=== PATIENT | male | born 1945 | race Caucasian/White ===

== ENCOUNTER 2018-03-02 05:22 | Inpatient (IN) ==
--- NOTE | 2018-02-17 11:40 | Anesthesiology Consultation ---
Date of Service February 17, 2018 Assessment & Plan (1) Encounter for pre-operative examination: Plan: - Check BSG AM DOS Chart Review Chart Review: Acceptable Risk for Surgery and Patient seen in Pre Admission Testing Teaching & Discussion Pre-Anesthesia Teaching/Discussion Notes: Instructed NPO after midnight before surgery,except medications with 15 cc of water. Medication instructions provided according to the PAT guidelines. History Surgery Operation Date: 03/02/18 07:15 Proposed Procedures p Total Knee Arthroplasty - Cristino Slade MD Height/Weight Height: 5 ft 3 in Weight: 96.9 kg Allergies Allergy/AdvReac Type Severity Reaction Status Date / Time No Known Allergies Allergy Unknown Verified 02/08/18 08:02 Medications Home Medications Medication Instructions Recorded Confirmed Last Taken allopurinol 300 mg PO QAM 02/08/18 02/08/18 Unknown amlodipine 10 mg PO QAM 02/08/18 02/08/18 Unknown aspirin 81 mg PO QAM 02/08/18 02/08/18 Unknown betamethasone dipropionate 1 applic TOPICAL DAILY PRN 02/08/18 02/08/18 Unknown gabapentin 300 mg PO HS 02/08/18 02/08/18 Unknown lisinopril 20 mg PO BID 02/08/18 02/08/18 Unknown metformin 500 mg PO BID 02/08/18 02/08/18 Unknown metoprolol succinate 50 mg PO QAM 02/08/18 02/08/18 Unknown simvastatin 20 mg PO HS 02/08/18 02/08/18 Unknown triamcinolone acetonide 1 applic TOPICAL BID PRN 02/08/18 02/08/18 Unknown furosemide 40 mg PO DAILY 02/17/18 02/17/18 Unknown potassium chloride 20 meq PO DAILY 02/17/18 02/17/18 Unknown Past Medical History Medical History Anxiety Cancer PROSTATE- S/P RADIATION (2005) Hearing deficit Hyperlipidemia Hypertension Kidney stones Osteoarthritis Peripheral neuropathy Prediabetes ON METFORMIN Urinary frequency Venous stasis dermatitis Past Family History Family History Father Family history of diabetes mellitus Family hx of colon cancer Sister Family hx of colon cancer Past Surgical History Surgical History H/O prostate biopsy History of cataract surgery History of cystoscopy WITH STENT INSERTIONS History of laminectomy LUMBAR LAMINECTOMY/DISCECTOMY History of lithotripsy History of tooth extraction Past Anesthesia History No Hx of Anesthesia Complications and No Family Hx of Anesthesia Complications History of PONV No Motion Sickness Screening History of Motion Sickness: No Social History Smoking Status: Never smoker tobacco type: smokeless tobacco Do You Dip or Chew Tobacco: Yes (1 CAN/DAY= ADVISED NOT TO CHEW AM DOS) Hx Alcohol Use: No Hx Substance Use: No substance use type: does not use Exercise / Class Metabolic Activity III < 4 Walking/Shop/Light housework Review of Systems Patient denies chest pain, shortness of breath, cough, wheezing, palpitations. Physical Exam Vital Signs VITALS BP 143/76 P 74 TEMP 97.6 SP02 96%RA RESP 18 Full neck and c-spine range of motion. Full TMJ range of motion. TMD 3 finger breaths Mallampati Score 2 Dentition: intact Lungs: clear throughout to auscultation Cardiac: regular rate and rhythm, no murmurs noted Spine: normal Carotid arteries: negative bruit Extremities: no edema Testing Electrocardiogram Date: 02/17/18 SR with first degree AVB at 67bpm. Chest X-Ray Date: 02/17/18 Findings: + NAD There is mild cardiomegaly. There are suspected mitral annular calcification. Laboratory Results 02/17/18 12:00 02/17/18 12:00 Blood Type A Positive 02/17/18 12:00 Antibody Screen NEGATIVE 02/17/18 12:00 PT 10.6 Seconds (9.0-12.0) 02/17/18 12:00 INR 1.1 (0.9-1.1) 02/17/18 12:00 APTT 26.4 Seconds (21.0-31.0) 02/17/18 12:00 Urine Color Yellow 02/17/18 13:13 Urine Appearance Clear (Clear) 02/17/18 13:13 Urine pH 6.0 (4.5-7.5) 02/17/18 13:13 Ur Specific [place] 1.017 (1.000-1.030) 02/17/18 13:13 Urine Protein Negative (Negative) 02/17/18 13:13 Urine Glucose (UA) Negative (Negative) 02/17/18 13:13 Urine Ketones Negative (Negative) 02/17/18 13:13 Urine Nitrite Negative (Negative) 02/17/18 13:13 Ur Leukocyte Esterase Trace (Negative) H 02/17/18 13:13 Urine WBC (Auto) 5-10 /hpf (0-5) H 02/17/18 13:13 Urine RBC (Auto) 5-10 /hpf (0-4) H 02/17/18 13:13 U Hyaline Cast (Auto) 1-5 /lpf (0-5) 02/17/18 13:13 U Epithel Cells (Auto) >30 /lpf (0-5) H 02/17/18 13:13 Urine Bacteria (Auto) 1+ (Negative) H 02/17/18 13:13 02/17/18 13:13 Urine Culture - Final Urine,Clean Catch More than three types of organisms present, all moderate counts mixed probable skin maksim. No further identifications or sensitivities to follow.
--- NOTE | 2018-02-17 11:42 | PAT Medication Instructions ---
Medication Instructions Date of Service February 17, 2018 Home Medications allopurinol 300 mg PO QAM amlodipine 10 mg PO QAM aspirin 81 mg PO QAM betamethasone dipropionate 1 applic TOPICAL DAILY PRN gabapentin 300 mg PO HS hydrochlorothiazide 25 mg PO QAM lisinopril 20 mg PO BID metformin 500 mg PO BID metoprolol succinate 50 mg PO QAM simvastatin 20 mg PO HS triamcinolone acetonide 1 applic TOPICAL BID PRN STOP taking 24 hours before surgery betamethasone dipropionate 1 applic TOPICAL DAILY PRN triamcinolone acetonide 1 applic TOPICAL BID PRN DO NOT take the morning of surgery hydrochlorothiazide 25 mg PO QAM lisinopril 20 mg PO BID metformin 500 mg PO BID Take morning of surgery With a small sip of water, OTHERWISE NOTHING TO EAT OR DRINK AFTER MIDNIGHT: allopurinol 300 mg PO QAM amlodipine 10 mg PO QAM aspirin 81 mg PO QAM metoprolol succinate 50 mg PO QAM Take evening before surgery gabapentin 300 mg PO HS lisinopril 20 mg PO BID metformin 500 mg PO BID simvastatin 20 mg PO HS Other Notes If you have any questions please call us at [phone] or [phone] or [phone] or [phone]
--- NOTE | 2018-02-17 12:41 | XRay Report ---
XR chest Pre-admission PA/Lat CLINICAL HISTORY: Preoperative evaluation. COMPARISON STUDY: No previous studies for comparison. FINDINGS: Lung volumes are normal. There is no pneumothorax or pleural effusion. There is no consolid ation or evidence for pulmonary edema. There is mild cardiomegaly. There are suspected mitral annular calcification. IMPRESSION: 1. No acute cardiopulmonary findings. 2. Mild cardiomegaly. Electronically signed by: Luisito Monique M.D. 02/17/2018 12:39 PM
[2018-02-17 14:10] LABS: Basophils # (auto) 0.02 K/uL (0-0.2); Basophils % (auto) 0.3 %; Eosinophils # (auto) 0.22 K/uL (0-0.5); Eosinophils % (auto) 3.6 %; Hematocrit (blood only) 42.7 % (42-52); Hemoglobin 14.1 g/dL (14.0-18.0); Immature Granulocytes # (auto) 0.01 K/uL (0.00-0.02); Immature Granulocytes % (auto) 0.2 %; Lymphocytes # (auto) 1.22 K/uL (1.2-3.4); Mean Corpuscular Volume 98.2 fL (80-100); Mean Platelet Volume 11.5 fL (7.4-10.4); Monocytes # (auto) 0.58 K/uL (0.11-0.59); Monocytes % (auto) 9.5 %; Neutrophils # (auto) 4.04 K/uL (1.4-6.5); Neutrophils % (auto) 66.4 %; Platelet Count 158 K/uL (130-400); RDW Coefficient of Variation 13.7 % (11.5-14.5); RDW Standard Deviation 49.3 fL (36.4-46.3); Red Blood Count 4.35 M/uL (4.7-6.1); White Blood Count 6.09 K/uL (4.8-10.8)
[2018-02-17 14:16] LABS: BUN Creatinine Ratio 15.8 (10-20); Calcium 9.5 mg/dl (8.5-10.1); Creatinine Clr Calc Pharmacy 47.1 ml/min; Est GFR (Non-African American) 48.3; Potassium 3.9 mmol/L (3.5-5.1)
[2018-02-17 14:21] LABS: INR 1.1 (0.9-1.1); Partial Thromboplastin Time 26.4 Seconds (21.0-31.0); Prothrombin Time 10.6 Seconds (9.0-12.0)
[2018-02-17 16:23] LABS: Appearance Urine Clear (Clear); Bacteria Urine Automated 1+ (Negative); Bilirubin Urine Negative (Negative); Color Urine Yellow; Epithelial Cell Urine Auto >30 /lpf (0-5); Glucose Urine UA Negative (Negative); Ketones Urine Negative (Negative); Leukocyte Esterase Urine Trace (Negative); Nitrite Urine Negative (Negative); Protein Urine Negative (Negative); Specific Gravity Urine 1.017 (1.000-1.030); Urobilinogen Urine Negative (Negative)
--- NOTE | 2018-03-01 18:23 | History and Physical Report ---
DATE OF ADMISSION: 03/02/2018 CHIEF COMPLAINT: Chronic right knee pain. HISTORY OF PRESENT ILLNESS: This is a 72-year-old male patient of Dr. Slade'shahab complaining of chronic right knee pain, longstanding, now progressively getting worse. The patient has failed conservative treatment including intraarticular injection and the use of a cane and a wrap. He has been diagnosed with end-stage osteoarthritis per clinical and radiographic exam. The patient has increased pain with weightbearing activities and her pain does interfere with her activities of daily living. PAST MEDICAL HISTORY: Heart murmur, hypertension, hypercholesterolemia, peripheral neuropathy, diabetes mellitus, obesity, dental issues, kidney stones, prostate cancer. SOCIAL HISTORY: Nonsmoker, nondrinker. REVIEW OF SYSTEMS: Chronic right knee pain; otherwise, denies any shortness of breath, chest pain, nausea, vomiting or joint complaints. PAST SURGICAL HISTORY: Back surgery and kidney stone removal. MEDICATIONS: Amlodipine 5 mg daily, potassium chloride 20 mEq daily, furosemide 40 mg daily, metformin 500 mg twice daily, metoprolol 50 mg daily, simvastatin 20 mg daily, allopurinol 300 mg daily, Prinivil 20 mg twice daily, Neurontin 300 mg daily, Flomax 0.4 mg daily, aspirin 81 mg daily. ALLERGIES: No known drug allergies. PHYSICAL EXAMINATION: GENERAL: Well-developed, well-nourished 72-year-old male, in no acute distress. He is alert and oriented x3 and pleasant. HEENT: Normocephalic, atraumatic. Extraocular motions are intact. Pupils are equal, reactive to light. HEART: Regular rate and rhythm with a 1/6 murmur appreciated. LUNGS: Clear. ABDOMEN: Soft and nontender. Bowel sounds are present. EXTREMITIES: Right knee reveals range of motion of 0-130 degrees with crepitation. He has a mild effusion. He has 4/5 strength with varus deformity. Neurologically and neurovascularly, he is intact in his right lower extremity. DIAGNOSES: Right knee end-stage osteoarthritis, history of a heart murmur, hypertension, hypercholesterolemia, peripheral neuropathy, diabetes mellitus, obesity, poor dental hygiene, kidney stones, prostate cancer. PLAN: The patient was advised of his diagnoses. Indications, risks, benefits, postop course have all been reviewed. The patient wishes to proceed with a right total knee arthroplasty. Necessary consent forms, preoperative testing and clearances will be obtained.
[2018-03-02] MEDS ORDERED: ROPIVACAINE 0.5% HCL/PF 150 MG, BUPIVACAINE 0.5% MPF 30 ML, EPINEPHrine 30MG/30ML (OR U... INFIL SCH (06:00)
[2018-03-02] MEDS ORDERED: ACETAMINOPHEN 500 MG TAB PO SCH (06:00)
[2018-03-02] MEDS ORDERED: FAMOTIDINE 20 MG TAB PO SCH (06:00)
[2018-03-02] MEDS ORDERED: CEFAZOLIN 2000MG 2,000 MG/15 ML SYR IV SCH (06:00)
[2018-03-02] MEDS ORDERED: METOCLOPRAMIDE HCL 10 MG TABLET PO SCH (06:00)
[2018-03-02] MEDS ORDERED: LR 500ML BOLUS, THEN 15ML/HR IV SCH (06:00)
[2018-03-02] MEDS ORDERED: TRANEXAMIC ACID 1,000 MG **IV Pre-op IV SCH (06:00)
[2018-03-02] MEDS ORDERED: GABAPENTIN 300 MG PO SCH (06:00)
[2018-03-02] MEDS ORDERED: CeleBREX 200 MG CAP PO SCH (06:00)
[2018-03-02] MEDS ORDERED: ROPIVACAINE 0.5% 5 MG/ML 30 ML VIAL ONE (06:25)
[2018-03-02] MEDS ORDERED: BUPIVACAINE 0.5 % 5 MG/1 ML PF 10ML VIAL ONE (06:25)
[2018-03-02] MEDS ORDERED: EPINEPHrine INJ 1 MG/ML AMP ONE (06:26)
[2018-03-02] MEDS ORDERED: TRANEXAMIC ACID 1,000 MG **IV Intra-op IV SCH (06:30)
[2018-03-02] MEDS ORDERED: PROPOFOL IV EMULSION 10 MG/ML 20 ML VIAL IV ONE (06:56)
[2018-03-02] MEDS ORDERED: LIDOCAINE HCL 2% 2 ML VIAL/AMP(20MG/ML) INFIL ONE (06:56)
[2018-03-02] MEDS ORDERED: fentaNYL citrate 100 MCG/2 ML VIAL ONE ×2 (06:57→07:49)
[2018-03-02] MEDS ORDERED: MIDAZOLAM HCL 1 MG/ML 2ML VIAL ONE (06:57)
[2018-03-02] MEDS ORDERED: ORTHO JOINT ANESTHETIC ONE (07:02)
[2018-03-02] MEDS ORDERED: POVIDONE-IODINE OP SOLN 30 ML BTL ONE (07:02)
[2018-03-02] MEDS ORDERED: BACITRACIN INJ 50,000 UNIT VIAL ONE (07:03)
--- NOTE | 2018-03-02 07:03 | History & Physical Bridge Note ---
Date of Service March 02, 2018 History & Physical Bridge Note I have examined the patient, reviewed the History & Physical and in the interval since the performance of the History & Physical I have noted the following changes of clinical significance: no changes noted
[2018-03-02] MEDS ORDERED: PHENYLEPHRINE 100MCG/ML 5ML SYR ONE (08:03)
[2018-03-02] MEDS ORDERED: ONDANSETRON INJ 2 MG/ML 2 ML VIAL ONE (08:03)
[2018-03-02] MEDS ORDERED: ePHEDrine sulfate 50 MG/ML SYR ONE (08:03)
[2018-03-02] MEDS ORDERED: DEXAMETHASONE SOD INJ 4 MG/ML VIAL ONE (08:03)
[2018-03-02] MEDS ORDERED: HYDROmorphone INJ 2 MG/ML SYR/VIAL ONE (08:06)
--- NOTE | 2018-03-02 09:40 | Post Operative Brief Note ---
Immediate Post Op Note v1 Date of Surgery March 02, 2018 Pre & Post Diagnosis Operation Date: 03/02/18 07:15 Pre-Op Diagnosis: Right Knee Degenerative Joint Disease Post-Op Diagnosis: Right Knee Degenerative Joint Disease Procedure Operation Date: 03/02/18 07:15 Actual Procedures p Right Total Knee Arthroplasty(Right) - Cristino Slade MD Surgeon Cristino Slade MD Instructional Design Manager Ben RICE Estimated Blood Loss 5 Findings Consistent with Post-Op Diagnosis Specimens BONE CUTS Drains Hemovac Drain Anesthesia Type General Regional Complications none Disposition Accompanied Patient To Recovery: No Disposition: Recovery Room Overlapping Procedure I was immediately available: during the entire case.
[2018-03-02] MEDS ORDERED: ONDANSETRON INJ 2 MG/ML 2 ML VIAL IV PRN ×2 (09:42→10:55)
[2018-03-02] MEDS ORDERED: FLUMAZENIL 0.1 MG/1 ML 10 ML VIAL IV PRN (09:42)
[2018-03-02] MEDS ORDERED: ePHEDrine sulfate 50 MG/ML AMP IV PRN (09:42)
[2018-03-02] MEDS ORDERED: ATROPINE SULFATE 0.1 MG/ML 10ML SYR IV PRN (09:42)
[2018-03-02] MEDS ORDERED: HYDROmorphone INJ 1 MG/ML SYRINGE IV PRN (09:42)
[2018-03-02] MEDS ORDERED: NALOXONE HCL 0.4 MG/1 ML VIAL/CARP IV PRN (09:42)
[2018-03-02] MEDS ORDERED: LABETALOL HCL IV 5 MG/ML 20ML IV PRN (09:42)
--- NOTE | 2018-03-02 09:57 | Operative Report ---
Post Operative Report Pre & Post Diagnosis Operation Date: 03/02/18 07:15 Pre-Op Diagnosis: Right Knee Degenerative Joint Disease Post-Op Diagnosis: Right Knee Degenerative Joint Disease Procedure Operation Date: 03/02/18 07:15 Actual Procedures p Right Total Knee Arthroplasty(Right) - Cristino Slade MD Surgeon Cristino Slade MD Wood Crew Supervisor Ben RICE Estimated Blood Loss 5 Findings Consistent with Post-Op Diagnosis Specimens Bone cuts Drains 2 Hemovac Anesthesia Type General Regional Complications none Disposition Disposition: Recovery Room Indications 73 male with end-stage osteoarthritis of [id number] medial compartment some mild bone loss. He has a a varus knee. Description of Procedure Patient taken to the operating room the size under general regional block anesthesia. Patient was placed supine on the operating table. A pneumatic tourniquet was placed about the right upper thigh. The right lower extremity was prepped and draped in sterile fashion. Knee exam demonstrated varus knee no pseudolaxity 15-20 degree flexion contracture with flexion of 100 degrees. The leg was elevated exsanguinated with an Esmarch bandage and pneumatic tourniquet was raised to 325 millimeters of mercury. Skin incised sharply in longitudinal fashion. Subcutaneous flaps elevated. Incision was made through the medial retinaculum extending up in the mid third of the quadriceps tendon and down to the medial tibial tubercle. Intra-articular findings demonstrated varus knee [id number] eburnated bone with ridging medial compartment some mild bone loss. Loose bodies multiple tricompartmental osteophytes moderately severe patellofemoral osteoarthritis. The [employer] triathlon total knee arthroplasty system was used. To expose the knee the infrapatellar fat pad was resected. The meniscal remnants and cruciate ligaments were resected. The anterior fat pad over the femur in the area of the anterior flange of the femoral component was resected. Lateral synovial bands release. The femur was exposed. An intramedullary drill hole was made into the canal. A guidewire was placed. Distal femoral cutting guide was adjusted to resect a 5 degree valgus cut with 10 millimeters distal femur resected. The knee was extended and a subperiosteal peel lateral release was performed around the patella. Patella width was measured and width was reproduced using a freehand cut technique and a 39 symmetrical patella component. The 3 drill holes were made and the excess lateral facet was beveled off to prevent any impingement. Attention was taken back to the femur which was exposed with retractors and the femoral sizing guide was pinned in position. The drill holes were placed in 3 of external rotation to match epicondylar axis. Femur sized for a 7 component. The 4-in-1 cutting block was placed and then the anterior posterior and chamfer cuts are made. The tibia was then subluxed. The external tibial cutting guide was just to make a perpendicular cut to the long axis of the tibia below the most deficient bone loss side. A lamina navy airspace officer was used and the flexion extension gaps were balanced. All posterior osteophytes removed. All meniscal remnants were resected. The tibia exposed and the trial tibial component size 7 was externally rotated in line with the tibial tubercle and pinned in position. The punch for stem was used. The notch cutting device was centered appropriately and the femoral notch cut was made. The femoral trial was inserted. Trial tibial inserts were placed and size 11 gave balanced ligaments through flexion and extension. Patella tracking was assessed. The patella tracked centrally. The trial components were then removed and the orthomix anesthetic cocktail was injected per protocol. The knee was then copiously irrigated with pulsatile lavage antibiotic solution. Final components were then cemented with Simplex cement. Final components were triathlon 7 right femur posterior stabilized 7 primary tibial baseplate X3 poly- 11 mm insert posterior stabilized, 39 x 11 X3 poly-symmetrical patella. While the cement cured the Betadine soak was used per protocol. After cement cured further pulsatile lavage irrigation performed and 2 Hemovac drains were brought out laterally. The quadriceps tendon and medial retinaculum were closed with figure of 8 #1 Vicryl sutures. The knee was taken through full range of motion and the repair was secure. The subcutaneous tisssues were closed with 2-0 Vicryl sutures. Skin was closed with renetta. Sterile Silverlon dressings were applied. Patient procedure well. Ben RICE was my physician cleaner assistant who assisted in patient positioning prepping and draping,leg positioning ,soft tissue retraction and intrument management and participated in the closing and will participate in postoperative careof the patient. The patient tolerated the procedure well. I attest to the content of the Intraoperative Record and any orders documented therein. Any exceptions are noted below.
--- NOTE | 2018-03-02 10:22 | Anesthesiology Progress Note ---
Date of Service March 02, 2018 Anesthesia Post Procedure Vital Signs Vital Signs: Temp Pulse Pulse Resp BP Pulse Ox 03/02/18 10:10 37.2 C 84 14 130/65 99 03/02/18 10:00 93 H 14 117/71 99 03/02/18 09:50 100 H 14 116/71 100 03/02/18 09:42 36.6 C 95 H 14 125/68 98 03/02/18 06:16 36.5 C 75 20 143/86 H 96 Notes Mental Status: alert / awake / arousable Patient Amnestic to Procedure: Yes Nausea / Vomiting: adequately controlled Pain: adequately controlled Airway Patency, RR, SpO2: stable & adequate BP & HR: stable & adequate Hydration State: stable & adequate Anesthetic Complications: no major complications apparent
--- NOTE | 2018-03-02 10:28 | XRay Report ---
XR knee RT 2V routine HISTORY: 72 years-old Male Surgical Post Op right knee total joint arthroplasty. History of degenera tive joint disease. COMPARISON: None available TECHNIQUE: 2 views of the right knee FINDINGS: Right knee total joint arthroplasty with patellar resurfacing. Alignment is satisfactory. Anterior mi dline skin renetta with expected postsurgical soft tissue swelling and deep tissue air. Surgical drai nage catheter is noted. Peripheral arterial calcifications. 1.8 cm linear hyperdense focus projects o howard the suprapatellar tissues. IMPRESSION: 1. Right knee total joint arthroplasty and patella resurfacing with satisfactory alignment. 2. 1.8 cm linear hyperdense focus projects over the suprapatellar tissues. Correlate clinically to ex clude foreign body. The above report was generated using voice recognition software. It may contain grammatical, syntax o r spelling errors. Electronically signed by: Yariel Ruiz M.D. 03/02/2018 10:27 AM
[2018-03-02] MEDS ORDERED: TRIAMCINOLONE ACET 0.025% CR 15 GM TUBE TOP PRN (10:55)
[2018-03-02] MEDS ORDERED: SODIUM CHLORIDE 0.9% 1000ML 1,000 ML IV SCH (10:55)
[2018-03-02] MEDS ORDERED: METOCLOPRAMIDE HCL INJ 5 MG/ML 2 ML VIAL IV PRN (10:55)
[2018-03-02] MEDS ORDERED: MAGNESIUM HYDROXIDE SUSP 30 ML UDC PO PRN (10:55)
[2018-03-02] MEDS ORDERED: BISACODYL 10 MG SUPP PR PRN (10:55)
[2018-03-02] MEDS ORDERED: MoRPHine SULFATE 2 MG/ML CARP IV PRN (10:55)
[2018-03-02] MEDS ORDERED: OXYCODONE HCL IR 5 MG TAB (IMMEDIATE RELEASE) PO PRN (10:55)
[2018-03-02] MEDS ORDERED: PHARMACY GLYCEMIC MGMT CONSULT PRN (11:04)
[2018-03-02] MEDS ORDERED: INSULIN GLARGINE SOLOSTAR 100 UNITS/ML 3 ML PEN SC STA (11:13)
--- NOTE | 2018-03-02 11:34 | Pharmacy Report ---
Glycemic Control Consultation - Date of Service March 02, 2018 - Scope Scope: Glycemic Pharmacist consulted by Ben Aguilar on 03/02/18 for glycemic control and to write orders per [facility] inpatient glycemic control protocol - Objective Weight: 94.801 kg Accuchecks BSG (last 24hrs): 03/02/18 03/02/18 05:42 10:04 POC Glucose 130 H 153 H - Recent Pertinent Medications Outpatient Anti-diabetic Regimen: * Metformin 500mg BIDM - Assessment & Plan Assessment & Plan: ASSESSMENT: * Mr. Burns is a 72yo M unbeknownst to the pharmacy glycemic service. PMHx consistent with HTN, Prostate CA, obesity, HLD. I am unsure of pt's glycemic status, will order an A1C with labs tomorrow. * He takes metformin 500mg BIDM. * He did receive DXM 4mg IV perioperatively. Minimal other RF for insulin resistance at this juncture other than POD 0 and GCs. PLAN FOR INPATIENT GLYCEMIC CONTROL: * Holding outpatient oral diabetes medications * Basal insulin * Lantus 25 units as soon as he hits the floor, then SQ Lantus scale BID @2100 tonight * BSGs <120mg/dL hold lantus * BSGs 120 - 180 give 16 units * BSGs > 180mg/dL give 24 units * Bolus insulin * NovoLog per scale ACHS or Q6hrs while NPO * Goal Range: Low 110 mg/dL - High 140 mg/dL * Correction Factor: 15 mg/dL/unit * Nutritional / Prandial insulin per carb ratio of 1 unit per 6 grams CHO consumed * adding 00,04 checks to help ensure euglycemia in the post-operative setting * Please note that the plan above was derived based on current level of insulin resistance and hospital stress. These recommendations are appropriate for inpatient admission only. Plan of care upon discharge will need to be reassessed to avoid potential outpatient hypo/hyperglycemia. Thank you.
[2018-03-02] MEDS: INSULIN ASPART 100 UNITS/ML 3 ML PEN SC SCH ×3 (13:18→21:11)
[2018-03-02] MEDS ORDERED: MoRPHine SULFATE 4 MG/ML 1 ML CARP\\VIAL IV PRN (13:21)
[2018-03-02] MEDS: ACETAMINOPHEN 500 MG TAB PO SCH ×2 (13:28→22:47)
--- NOTE | 2018-03-02 13:37 | Internal Medicine Consult Note ---
Date of Consultation March 02, 2018 Assessment & Plan (1) Postoperative state: S/P right TKA. Doing well postoperatively. (2) Essential hypertension: Hemodynamically stable postop. Continue metoprolol, amlodipine, and lisinopril with hold parameters. (3) Diabetes mellitus type 2, controlled: Well-controlled on metformin. Hgb A1C 6.4 12/20/17. Fingerstick blood sugar this morning 130. Hold metformin during hospital stay. Lantus / NovoLog per protocol. Diabetes mellitus senior living insulin use: without senior living use Diabetes mellitus complication status: without complication Qualified Code(s): E11.9 - Type 2 diabetes mellitus without complications (4) CKD (chronic kidney disease), stage III: CKD III with preop creatinine of 1.42. Use NSAID's with caution. Follow. (5) DVT prophylaxis: Per Ortho protocol. (6) Encounter for consultation: Thank you for this consultation. We will follow the patient with you during their hospital stay. My cell # is [phone]. Dr. Sanchez will be assuming medical management Tuesday. You can reach a member of the [facility] Medicine Team 13/09 via pager @ [phone]. History of Present Illness Reason for Consultation: perioperative medical management Requesting Physician: Dr. Slade Attending Physician: Cristino Slade MD History of Present Illness 72-year-old male followed by Dr. Carrizales. History of hypertension, diabetes mellitus type 2, and other problems noted below. Right total knee arthroplasty performed today by Dr. Slade under general/ regional anesthesia. Doing well postoperatively. No chest pain, cough, SOB, nausea, vomiting. Pain well-controlled. Allergies Allergy/AdvReac Type Severity Reaction Status Date / Time No Known Allergies Allergy Unknown Verified 03/02/18 05:41 Home Medications Home Medications Medication Instructions Recorded Confirmed Type allopurinol 300 mg PO QAM 02/08/18 03/02/18 History amlodipine 10 mg PO QAM 02/08/18 03/02/18 History aspirin 81 mg PO QAM 02/08/18 03/02/18 History betamethasone dipropionate 1 applic TOPICAL DAILY PRN 02/08/18 03/02/18 History gabapentin 300 mg PO HS 02/08/18 03/02/18 History lisinopril 20 mg PO BID 02/08/18 03/02/18 History metformin 500 mg PO BID 02/08/18 03/02/18 History metoprolol succinate 50 mg PO QAM 02/08/18 03/02/18 History simvastatin 20 mg PO HS 02/08/18 03/02/18 History triamcinolone acetonide 1 applic TOPICAL BID PRN 02/08/18 03/02/18 History furosemide 40 mg PO DAILY 02/17/18 03/02/18 History potassium chloride 20 meq PO DAILY 02/17/18 03/02/18 History Patient History Medical History Anxiety Cancer PROSTATE- S/P RADIATION (2005) Hearing deficit Hyperlipidemia Hypertension Kidney stones Osteoarthritis Peripheral neuropathy Prediabetes ON METFORMIN Urinary frequency Venous stasis dermatitis Surgical History H/O prostate biopsy History of cataract surgery History of cystoscopy WITH STENT INSERTIONS History of laminectomy LUMBAR LAMINECTOMY/DISCECTOMY History of lithotripsy History of tooth extraction Family History Father Family history of diabetes mellitus Family hx of colon cancer Sister Family hx of colon cancer Social History Current Living Situation: Alone Other Information That Helps Us Care for You: No Feels Safe at Home: Yes Safety Concerns: Feels Safe At This Time Smoking Status: Never smoker Do You Dip or Chew Tobacco: Yes (1 CAN/DAY= ADVISED NOT TO CHEW AM DOS) Hx Alcohol Use: No Hx Substance Use: No Beliefs That Will Affect Care: None Communication Ability: Effective Review of Systems Constitutional: no fever Respiratory: no cough and no dyspnea Cardiovascular: no chest pain Gastrointestinal: no nausea and no vomiting Genitourinary (Male): no dysuria and no urinary hesitancy Musculoskeletal: + joint pain does not check blood sugars at home Hematologic / Lymphatic: no easy bleeding and no easy bruising Physical Exam 2 Vital Signs (Past 24 Hours): Last Vital Signs Temp 37.1 C 03/02/18 10:35 Pulse 86 03/02/18 12:35 Resp 18 03/02/18 12:35 BP 117/69 03/02/18 12:35 Pulse Ox 99 03/02/18 12:35 Constitutional: WD/WN, vitals as above no acute distress Eyes: PERRL, conjunctivae normal, anicteric sclerae ENMT: external ear and nose normal, oropharynx normal Neck: trachea midline, no thyromegaly Respiratory: normal respiratory effort, lungs clear to auscultation Cardiovascular: Rate/Rhythm: regular rate Heart Sounds: + murmur (II/ sys murmur LSB); no gallop and no cardiac rub Vessels: no JVD Extremities : normal capillary refill; no calf tenderness and no edema Gastrointestinal (Abdomen): normal bowel sounds, soft, nontender, no hepatosplenomegaly Musculoskeletal: Head/Neck/Chest: neck supple Extremities: no cyanosis and no clubbing KEVIN stocking LLE, elastic bandage RLE bilateral SCDs Skin: no rashes, warm and dry Neurologic: PERRL, EOMI no facial palsy no dysarthria or aphasia Psychiatric: Orientation: alert and oriented x 3 Affect: euthymic affect Lymphatic: no cervical lymphadenopathy Results & Data Laboratory Results Laboratory Tests 02/17/18 02/17/18 02/17/18 12:00 12:00 12:00 WBC 6.09 Hgb 14.1 Plt Count 158 PT 10.6 INR 1.1 APTT 26.4 Sodium 141 Potassium 3.9 Chloride 106 Carbon Dioxide 26 BUN 23 H Creatinine 1.42 H Glucose 118 H Diagnostic Findings Chest x-ray performed 02/09/18 demonstrated mild cardiomegaly, no acute findings. ECG Additional Comments: EKG performed 02/17/18 at 1203 reviewed and demonstrated sinus rhythm at 70/minute, first-degree AV block, no acute findings.
[2018-03-02] MEDS: CEFAZOLIN 2000MG 2,000 MG/15 ML SYR IV SCH ×2 (16:44→23:40)
[2018-03-02] MEDS: DOCUSATE SODIUM 100 MG CAP PO SCH (21:04)
[2018-03-02] MEDS: GABAPENTIN 300 MG CAP PO SCH (21:05)
[2018-03-02] MEDS: SIMVASTATIN 20 MG TAB PO SCH (21:05)
[2018-03-02] MEDS: CeleBREX 200 MG CAP PO SCH (21:06)
[2018-03-02] MEDS: ASPIRIN 81 MG ECTAB PO SCH (21:06)
[2018-03-02] MEDS: LISINOPRIL 20 MG TAB PO SCH (21:07)
[2018-03-02] MEDS: INSULIN GLARGINE SOLOSTAR 100 UNITS/ML 3 ML PEN SC SCH (21:11)
[2018-03-03] MEDS: INSULIN ASPART 100 UNITS/ML 3 ML PEN SC SCH ×6 (00:54→21:22)
[2018-03-03] MEDS: ACETAMINOPHEN 500 MG TAB PO SCH ×3 (06:14→23:31)
[2018-03-03 07:12] LABS: Hematocrit (blood only) 33.9 % (42-52); Mean Corpuscular Hgb Conc 32.4 g/dL (32-36); Mean Corpuscular Volume 98.3 fL (80-100); Mean Platelet Volume 11.1 fL (7.4-10.4); Platelet Count 133 K/uL (130-400); RDW Coefficient of Variation 14.1 % (11.5-14.5); RDW Standard Deviation 50.5 fL (36.4-46.3); Red Blood Count 3.45 M/uL (4.7-6.1); White Blood Count 9.68 K/uL (4.8-10.8)
[2018-03-03 07:48] LABS: BUN Creatinine Ratio 20.2 (10-20); Calcium 8.3 mg/dl (8.5-10.1); Creatinine Clr Calc Pharmacy 47.2 ml/min; Est GFR (African American) 53.3
--- NOTE | 2018-03-03 07:52 | Anesthesiology Progress Note ---
Date of Service March 03, 2018 Anesthesia Post Procedure Vital Signs Vital Signs: Temp Pulse Pulse Resp BP Pulse Ox 03/03/18 04:28 36.8 C 76 18 128/82 96 03/02/18 23:38 36.7 C 87 18 158/82 H 95 03/02/18 19:28 36.6 C 78 20 115/76 94 03/02/18 15:22 36.6 C 67 22 124/76 97 03/02/18 13:35 80 16 112/64 96 03/02/18 12:35 86 18 117/69 99 03/02/18 11:35 77 18 127/66 96 03/02/18 11:05 82 18 115/64 96 03/02/18 10:35 37.1 C 86 16 120/65 94 03/02/18 10:20 37.2 C 88 14 119/62 99 03/02/18 10:10 37.2 C 84 14 130/65 99 03/02/18 10:00 93 H 14 117/71 99 03/02/18 09:50 100 H 14 116/71 100 03/02/18 09:42 36.6 C 95 H 14 125/68 98 Notes Mental Status: alert / awake / arousable and participated in evaluation Patient Amnestic to Procedure: Yes Nausea / Vomiting: adequately controlled Pain: adequately controlled Airway Patency, RR, SpO2: stable & adequate BP & HR: stable & adequate Hydration State: stable & adequate Anesthetic Complications: no major complications apparent and Pt Satisfied with anesthetic care
[2018-03-03 07:57] LABS: Estimated Average Glucose 137 mg/dl
[2018-03-03] MEDS ORDERED: AMLODIPINE BESYLATE 5 MG TAB PO SCH ×2 (09:00→18:00)
[2018-03-03] MEDS: INSULIN GLARGINE SOLOSTAR 100 UNITS/ML 3 ML PEN SC SCH ×2 (09:01→21:21)
[2018-03-03] MEDS: TRAMADOL HCL 50 MG TABLET PO PRN ×2 (09:03→20:21)
[2018-03-03] MEDS: CeleBREX 200 MG CAP PO SCH (09:03)
[2018-03-03] MEDS: ASPIRIN 81 MG ECTAB PO SCH ×2 (09:04→20:24)
[2018-03-03] MEDS: ALLOPURINOL 300 MG TAB PO SCH (09:05)
[2018-03-03] MEDS: DOCUSATE SODIUM 100 MG CAP PO SCH ×2 (09:05→20:23)
[2018-03-03] MEDS: METOPROLOL SUCC 50MG EXT REL TAB PO SCH (09:06)
[2018-03-03] MEDS: MULTIVITAMIN TAB PO SCH (09:07)
[2018-03-03] MEDS: POTASSIUM CHLORIDE 20 MEQ TABCR PO SCH (09:08)
[2018-03-03] MEDS: FUROSEMIDE 40 MG TAB PO SCH (09:08)
[2018-03-03] MEDS: PANTOprazole 40 MG TAB PO SCH (09:09)
[2018-03-03] MEDS: LISINOPRIL 20 MG TAB PO SCH ×2 (09:09→21:26)
--- NOTE | 2018-03-03 09:12 | Orthopedic Progress Note ---
Date of Service March 03, 2018 Assessment & Plan (1) Right knee DJD: POD #1, Right TKA PT/ OT DVT proph- ASA D/C planning- Home w HH As per medicine. Subjective POd #1, doing well, denies sob, cp, n/v, pain controlled well. Physical Exam 2 Vital Signs (Past 24 Hours): Last Vital Signs Temp 36.9 C 03/03/18 08:15 Pulse 64 03/03/18 08:15 Resp 16 03/03/18 08:15 BP 140/74 03/03/18 08:15 Pulse Ox 95 03/03/18 08:15 Physical Exam: Right knee dressings and drain c/d/i, toea and ankle mobile, no calf tenderness, A&Ox3.
--- NOTE | 2018-03-03 11:41 | Hospitalist Progress Note ---
Date of Service March 03, 2018 Assessment & Plan (1) S/P total knee arthroplasty: POD #1 S/P RTKA by Dr. Slade EBL 5ml Tolerated procedure well -pain/wound management per ortho -Activity, PT/OT as directed by ortho -ASA BID for VTE prophylaxis per ortho -incentive spirometry -monitor cbc, bmp (2) Right knee DJD: -plan as above (3) Essential hypertension: -blood pressure controlled on metoprolol, amlodipine, lisinopril, and lasix with hold parameters. -monitor bmp while on lasix (4) Diabetes mellitus type 2, controlled: Well-controlled on metformin. Hgb A1C 6.4 12/20/17 and 03/03/18 Hold metformin during hospital stay. Lantus / NovoLog per protocol, glycemic pharmacy on board per surgery (5) CKD (chronic kidney disease), stage III: -CKD III with preop creatinine of 1.42. -Use NSAID's with caution. -Cr today 1.48 -Follow (6) DVT prophylaxis: -ASA BID per surgery Disposition: D/C to home when able Follow up: with PCP upon discharge Patient was seen in collaboration with Dr. Sanchez, please see addendum. Thank you for this consultation. We will follow the patient with you during their hospital stay. You can reach a member of the [facility] Hospitalist Team 13/09 via pager @ [phone]. Supervising Physician Co-Signing Physician Notes I have seen and examined the patient with our team's physician [employer] assistant football coach and agree with the assessment and plan as above and would like to comment in addition that This is a 72 year old under orthopedic service who had operation by Dr. Slade for Right Total Knee Arthroplasty on 03/02/18 because of right knee degenerative joint disease Physical Exam General: Patient currently doing well, reports some pain with right knee after doing some therapy, no distress Extremities: right knee in dressing with wound vac draining blood Lungs: Clear to ascultation bilaterally Heart: regular rate Abdomen: soft, nontender, positive bowel sounds Neurological: no deficits Right Total Knee Arthroplasty on 03/02/18 because of right knee degenerative joint disease -management as above Acute blood loss anemia as preop Hgb 14 and post op Hgb 11 which is unremarkable given surgery and continued collection of blood with wound vac from the right knee, patient is asymptomatic, continue to trend CBC CKD Stage III with stable creatinine Hypertension controlled with blood pressure medications as above Type 2 diabetes mellitus without fpc use of insulin and without complications -glucose controlled with sliding scale insulin as inpatient Subjective Patient was seen and examined in room 320. Follow-up of S/P POD#[address] Slade. Tolerated procedure well. Just returned from therapy, "my knee stiffened up on me after therapy." Denies f/c/s, chest pain, sob, n/v/d. Had 1 small bm last night. Passing flatus. Appetite is good. Physical Exam 2 Vital Signs (Past 24 Hours): Last Vital Signs Temp 36.9 C 03/03/18 08:15 Pulse 64 03/03/18 08:15 Resp 16 03/03/18 08:15 BP 140/74 03/03/18 08:15 Pulse Ox 95 03/03/18 08:15 Physical Exam: Gen: WD/WN, M, appears age, sitting up at bedside, NAD, A&O x3 HEENT: Normocephalic, atraumatic, conjunctivae moist, sclerae anicteric, mucous membranes moist. Lung: Clear to Auscultation bilaterally, no wheezes/rales/rhonchi Heart: Regular rate, regular rhythm, no murmurs, rubs, or gallops Abdomen: Soft, NT, ND +BS x 4 Extremities: +1 RLE Edema, R TKA dressing CDI, b/l Teds in place, pedal pulses + 2 and equal. No LLE edema Skin: Warm, no rash, negative turgor. Results & Data Laboratory Results Short CBC 03/03/18 Range/Units 06:40 WBC 9.68 (4.8-10.8) K/uL Hgb 11.0 L (14.0-18.0) g/dL Hct 33.9 L (42-52) % Plt Count 133 (130-400) K/uL BMP 03/03/18 06:40 Sodium 138 Potassium 4.0 Chloride 107 Carbon Dioxide 25 BUN 30 H Creatinine 1.48 H Glucose 115 H Calcium 8.3 L _ (1) Diabetes mellitus type 2, controlled Chronic kidney disease stage: Diabetes mellitus complication detail: Diabetes mellitus complication status: without complication Diabetes mellitus intermediate accountant insulin use: without fpc use Diabetes mellitus macular edema: Diabetic retinopathy severity: Laterality: Proliferative retinopathy type : Qualified Code(s): E11.9 - Type 2 diabetes mellitus without complications
--- NOTE | 2018-03-03 15:36 | Pharmacy Report ---
Pharmacy Glycemic Short Note 2 - Date of Service March 03, 2018 - Glycemic Short BSG Results (Last 24 hours): 03/02/18 03/02/18 03/02/18 17:03 20:55 23:40 Glucose POC Glucose 142 H 130 H 134 H 03/03/18 03/03/18 03/03/18 04:04 06:40 08:29 Glucose 115 H POC Glucose 124 H 122 H 03/03/18 12:05 Glucose POC Glucose 115 H OUTPATIENT ANTIDIABETIC REGIMEN: * Metformin 500mg BIDM ASSESSMENT: * Mr. Burns is a 72yo T2DM male POD #1 s/p R TKA * Excellent glycemic control over the past 24 hours. He received 56 units of insulin on 03/02. I anticipate this amount to significantly decrease since IV steroids have worn off. * Fasting BSG of 122 mg/dL is at goal. Post prandial BSGs are also at goal. I will decrease basal insulin and loosen Novolog CF/CR today (increased doses utilized on POD#0 because pt received IV DXM). PLAN FOR INPATIENT GLYCEMIC CONTROL: * Holding outpatient oral diabetes medications * Basal insulin - decrease * Lantus 10 units SQ this AM, then Lantus BID per scale: * BSGs < 140mg/dL: hold lantus * BSGs 140 mg/dL or more: 10 units * Bolus insulin - loosen * NovoLog per scale ACHS or Q6hrs while NPO * Goal Range: Low 110 mg/dL - High 140 mg/dL * Correction Factor: 20 mg/dL/unit * Nutritional / Prandial insulin per carb ratio of 1 unit per 8 grams CHO consumed Thank you.
[2018-03-03] MEDS: GABAPENTIN 300 MG CAP PO SCH (20:23)
[2018-03-03] MEDS: SIMVASTATIN 20 MG TAB PO SCH (20:23)
[2018-03-04] MEDS: ACETAMINOPHEN 500 MG TAB PO SCH (06:17)
[2018-03-04 06:43] LABS: Hematocrit (blood only) 32.4 % (42-52); Hemoglobin 10.3 g/dL (14.0-18.0); Mean Corpuscular Hgb Conc 31.8 g/dL (32-36); Mean Corpuscular Volume 99.4 fL (80-100); Mean Platelet Volume 10.9 fL (7.4-10.4); Platelet Count 112 K/uL (130-400); RDW Coefficient of Variation 14.5 % (11.5-14.5); RDW Standard Deviation 51.8 fL (36.4-46.3); Red Blood Count 3.26 M/uL (4.7-6.1); White Blood Count 7.19 K/uL (4.8-10.8)
[2018-03-04 07:25] LABS: BUN Creatinine Ratio 27.2 (10-20); Calcium 8.2 mg/dl (8.5-10.1); Creatinine Clr Calc Pharmacy 61.8 ml/min; Est GFR (African American) 73.8; Est GFR (Non-African American) 63.7
[2018-03-04] MEDS: DOCUSATE SODIUM 100 MG CAP PO SCH (07:25)
[2018-03-04] MEDS: ASPIRIN 81 MG ECTAB PO SCH (07:26)
[2018-03-04] MEDS: FUROSEMIDE 40 MG TAB PO SCH (07:26)
[2018-03-04] MEDS: POTASSIUM CHLORIDE 20 MEQ TABCR PO SCH (07:26)
[2018-03-04] MEDS: PANTOprazole 40 MG TAB PO SCH (07:27)
[2018-03-04] MEDS: MULTIVITAMIN TAB PO SCH (07:27)
[2018-03-04] MEDS: LISINOPRIL 20 MG TAB PO SCH (07:28)
[2018-03-04] MEDS: ALLOPURINOL 300 MG TAB PO SCH (07:28)
[2018-03-04] MEDS: METOPROLOL SUCC 50MG EXT REL TAB PO SCH (07:28)
[2018-03-04] MEDS: TRAMADOL HCL 50 MG TABLET PO PRN ×2 (07:29→12:45)
[2018-03-04] MEDS ORDERED: METFORMIN HCL 500 MG TAB PO SCH (08:00)
[2018-03-04] MEDS: INSULIN ASPART 100 UNITS/ML 3 ML PEN SC SCH (08:14)
--- NOTE | 2018-03-04 08:22 | Hospitalist Progress Note ---
Date of Service March 04, 2018 Assessment & Plan (1) S/P total knee arthroplasty: This is a 72 year old under orthopedic service who had operation by Dr. Slade for Right Total Knee Arthroplasty on 03/02/18 because of right knee degenerative joint disease Right Total Knee Arthroplasty on 03/02/18 because of right knee degenerative joint disease Acute blood loss anemia as preop Hgb 14 02/17/19 and post op Hgb 11 on 03/03/18 which is unremarkable given surgery and continued collection of blood with wound vac from the right knee, patient is asymptomatic. wound vac taken out on 03/03/18 Follow up Hgb on 03/04/18 is 10.3 which is relatively stable (2) Right knee DJD: - as above (3) Essential hypertension: Hypertension controlled with blood pressure medications -blood pressure controlled on metoprolol, amlodipine, lisinopril, and lasix -resume as outpatient when discharged by orthopedics (4) Diabetes mellitus type 2, controlled: Type 2 diabetes mellitus that is controlled without care home use of insulin -glucose controlled with sliding scale insulin as inpatient -can resume home dose metformin as outpatient when discharged by orthopedics (5) CKD (chronic kidney disease), stage III: CKD Stage III with stable creatinine (6) DVT prophylaxis: -ASA BID as per orthopedics Patient is medically stable. Discharge as per orthopedic service Hospitalist medical consultation service to sign off at this time Subjective Patient was seen and examined in room 320 Patient had wound vac drain taken out yesterday. Denies acute pain of the knees or elsewhere Patient is already dressed in street clothes. He is waiting to be seen by orthopedics and anticipating that orthopedic service will discharge him home today Patient denies chest pain, sob, nausea, or vomiting. Reports he has been ambulatory with the walker. Denies lightheadedness or dizziness Musculoskeletal: + joint pain Physical Exam 2 Vital Signs (Past 24 Hours): Last Vital Signs Temp 37.1 C 03/04/18 07:04 Pulse 73 03/04/18 07:04 Resp 16 03/04/18 07:04 BP 152/74 H 03/04/18 07:04 Pulse Ox 96 03/04/18 07:04 Physical Exam: Physical Exam General: Patient currently doing well Extremities: right knee without acute tenderness Lungs: Clear to ascultation bilaterally Heart: regular rate, regular rhythm Abdomen: soft, nontender, positive bowel sounds Neurological: no deficits _ (1) Diabetes mellitus type 2, controlled Diabetes mellitus care home insulin use: without care home use Diabetes mellitus complication status: without complication Diabetes mellitus complication detail: Diabetic retinopathy severity: Proliferative retinopathy type: Diabetes mellitus macular edema: Laterality: Chronic kidney disease stage: Qualified Code(s): E11.9 - Type 2 diabetes mellitus without complications
--- NOTE | 2018-03-04 12:00 | Orthopedic Progress Note ---
Date of Service March 04, 2018 Assessment & Plan (1) Right knee DJD: POD #2, Right TKA PT/ OT DVT proph- ASA D/C planning- Home w HH As per medicine. Subjective POd #2, doing well, denies sob, cp, n/v, pain controlled well. Physical Exam 2 Vital Signs (Past 24 Hours): Last Vital Signs Temp 37.1 C 03/04/18 07:04 Pulse 73 03/04/18 07:04 Resp 16 03/04/18 07:04 BP 152/74 H 03/04/18 07:04 Pulse Ox 96 03/04/18 07:04 Physical Exam: Toes mobile, NVI. Calves soft, non tender. Dressing in place.
--- NOTE | 2018-03-19 19:38 | Discharge Summary ---
HISTORY OF PRESENT ILLNESS: This is a 72-year-old male patient of Dr. Slade'shahab complaining of chronic right knee pain, longstanding, now progressively getting worse. The patient has failed conservative treatment and has elected to proceed with a right total knee arthroplasty. PAST MEDICAL HISTORY: Heart murmur, hypertension, hypercholesterolemia, peripheral neuropathy, diabetes mellitus, obesity, dental issues, kidney stones and prostate cancer. POSTOPERATIVE COURSE: The patient underwent a right total knee arthroplasty on 03/02/2018. He was followed closely with medical consultation for his diabetes and multiple issues. He was followed with physical therapy, pain control and deep venous thrombosis prophylaxis in the form of aspirin. The patient did very well postoperatively and was discharged on postoperative day #2. PHYSICAL EXAMINATION ON DISCHARGE: EXTREMITIES: Silverlon dressing was clean, dry and intact. There was no redness or drainage. He had no calf tenderness. Negative Homans sign. Neurologically and neurovascularly, he was intact in his right lower extremity. DIAGNOSES: Status post right total knee arthroplasty, heart murmur, hypertension, hypercholesterolemia, peripheral neuropathy, diabetes mellitus, obesity, dental issues, kidney stones and history of prostate cancer. PLAN: The patient was discharged home with Home Health Services. He will continue with preadmission medications with the addition of pain medication and he will continue aspirin twice daily for deep venous thrombosis prophylaxis. The patient will follow up as scheduled as an outpatient.
== END 2018-03-04 12:48 | disposition home health service (06) | DRG 470 ==
LOC: ASU 05:22 → 3E 09:47